=== PATIENT | female | born 1995 | race Caucasian/White ===

== ENCOUNTER 2017-02-05 23:58 | Emergency (ER) | payer SELFPAY ==
[2017-02-06 00:05] VITALS: BP 146/98; BMI 31.2
[2017-02-06] MEDS ORDERED: TORADOL 60 MG VIAL IM ONE (00:28)
[2017-02-06] MEDS ORDERED: DECADRON INJ IM ONE (00:28)
--- NOTE | 2017-02-06 00:28 | DR.TOOTHHP ---
HPI - Time Seen Time seen: 00:25 - Primary Care Physician Primary Care Physician: LV - HPI Comment HPI Comment: WORSE TONIGHT. NO FEVER. MED TAKING AT HOME DID NOT HELP. - Complaints Chief Complaint Doctors Comments: TOOTHACHE, 3RD LOWER MOLAR TIMES ONE DAY. Chief Complaint:: "toothache" Self Treatment fo Chief Complaint: Advil - Reviewed Nurses Notes Reviewed: Yes - Source History Provided: Patient - Mode of Arrival Mode of Arrival: Ambulatory - Timing Onset of Chief Complaint: 02/06/17 - Severity Pain Severity: Moderate - Location Location:: Left, Lower, Tooth, Gums - Context Onset:: Spontaneous History Of: None - Modifying Factors Worsens:: Nothing Improves:: Analagesics havn't helped - Associated Signs and Symptoms Associated signs and symptoms: None PMH - PMH Past Medical History: Yes Past Medical History: Hypertension Past Surgical History: No - Family History History of Family Medical Conditions: Yes Family Medical History: Diabetes Mellitus - Social History Do you use any recreational Drugs:: No - infectious screening Have you traveled outside the country in the last 6 months?: No ROS - Review of Systems Constitutional: No Symptoms Reported Eyes: No Symptoms Reported ENTM: Mouth Pain (3RD LEFT LOWER MOLAR TENDER, GUM INFLAME). negative: Ear Pain , Throat Pain Respiratoy: No Symptoms Reported. negative: Productive Cough, Short of Breath, Wheezing, Hemoptysis Cardiovascular: No Symptoms Reported Gastrointestinal/Abdominal: No Symptoms Reported Genitourinary: No Symptoms Reported Neurological: Headache Musculoskeletal: No Symptoms Reported Integumentary: No Symptoms Reported Hematologic/Lymphatic: No Symptoms Reported Endocrine: No Symptoms Reported All Other Systems: Reviewed and Negative PE - Vital Signs Vitals: Temperature 98.4 F Pulse Rate 95 Respiratory Rate 18 Blood Pressure 146/98 O2 Sat by Pulse Oximetry 98 - General Limitations: No Limitations General Appearance: Alert - Head Head Exam: Normal Inspection - Eyes Eye exam: Normal Appearance. negative: PERRL - ENT ENT Exam: Normal External Ear Exam External Ear Exam: Normal External Inspection TM/Canal Exam: Bilateral Normal Nose Exam: Normal Nose Exam Mouth Exam: Normal Inspection, Lip Swelling, Other (TENDERNESS LEFT LOWER 3RD MOLAR, GUN SWOLLEN AND TENDER AND RED.). negative: Trismus, Tongue Elevation, Tongue Swelling Teeth Exam: Normal Inspection - Neck Neck Exam: Trachea Midline - Chest Chest Inspection: Symmetric Chest Wall Rise - Respiratory Respiratory Exam: Normal Lung Sounds Bilat Respiratory Exam: Bilateral Clear to Auscultation - Cardiovascular Cardiovascular Exam: Regular Rate, Normal Rhythm, Normal Heart Sounds - Abdominal Exam Abdominal Exam: Normal Bowel Sounds, Soft. negative: Tenderness - Extremities Extremities Exam: Normal Inspection - Back Back Exam: Normal Inspection - Neurologic Neurological Exam: Alert, Oriented X3 - Skin Skin Exam: Normal Color MDM - Additional information Additional Information Obtained From: Old Records - Differential diagnosis Differential Diagnosis: Other (GINGIVITIS, DENTAL PAIN.) Course - Treatment Treatment: SEE ORDERS. - Reevaluation 1st: Improved - Education/Counseling Education/Counseling: Patient, Family, Education Educated On: Treatment, Diagnosis, Needs for Follow Up - Diagnosis Discharge Problem: Toothache, Gingivitis - Discharge Plan Condition: Stable Prescriptions: Amoxicillin [Amoxil 875 mg] 875 mg PO BID #20 tab Ketorolac Tromethamine [Toradol Tab] 10 mg PO Q8H PRN #15 tab PRN Reason: Pain - Follow ups/Referrals Follow ups/Referrals: NFD,None [Primary Care Provider] - 3 days - Instructions Instructions: Dental Pain, [id number], Gingivitis, [id number] Additional Instructions: RETURN TO ED IF WORSE. SEE DENTIST THIS WEEK
[2017-02-06] MEDS ORDERED: AMOXIL CAP 500 MG PO ONE ×2 (00:31→00:37)
[2017-02-06] MEDS ORDERED: DECADRON INJ ONE (00:37)
[2017-02-06] MEDS ORDERED: TORADOL 30 MG VIAL ONE (00:38)
== END 2017-02-06 00:54 | disposition home or self-care (01) ==
LOC: ER 23:58
DX: K05.10 Chronic gingivitis, plaque induced (principal); K08.89 Other specified disorders of teeth and supporting structures
CPT/HCPCS: 96372; 99282; J1100; J1885

== ENCOUNTER 2017-02-08 13:03 | Emergency (ER) | payer SELFPAY ==
[2017-02-08 13:10] VITALS: BP 148/79; BMI 31.6
--- NOTE | 2017-02-08 13:43 | ED.ABDFE ---
HPI - Time seen Time seen: 15:40 - PCP Primary Care Physician: LV - HPI Comment HPI Comment: PATIENT WITH GALL BLADDER DISEASE HERE WITH INCREASING PAIN AND NAUSEA. SO ACTIVE VOMITING CURRENTLY. DENIES FEVER OR DYSURIA. MEDS AT HOME HELPING. - Complaint Chief Complaint Doctors Comments: ABDOMINAL PAIN WITH NAUSEA. Chief Complaint:: ABDOMINAL PAIN WITH NAUSEA. - Nurses notes reviewed Nurses Notes Review: Yes - Source History Provided: Patient - Mode of arrival Mode of Arrival: Ambulatory - Timing Onset of Chief Complaint: 01/25/17 Came on: Gradually - Duration Duration: Constant Duration: Days - Location Location: RUQ, Epigastric - Severity Severity: Moderate - Quality Quality: Sharp - Context Onset: Gradually History of: None - Modifying Worsening Factors: Nothing Improving Factors: Nothing - Associated signs and symptoms Associated Signs and Symptoms: Nausea PMH - PMH Past Medical History: Yes Past Medical History: Hypertension Past Surgical History: No - Family History History of Family Medical Conditions: Yes Family Medical History: Diabetes Mellitus - Social History Does any household member use tobacco: No Alcohol Use: Occasionally Do you use any recreational Drugs:: No Lives With: Alone Lives Where: Home - infectious screening In the last 2 months have you had wt loss of >10#?: YES Have you had fever, night sweats or hemotysis?: No Have you traveled outside the country in the last 6 months?: No Isolation: Standard ROS - Review of Systems Constitutional: Weakness, Fatigue, Loss of Appetite. negative: Chills, Fever Eyes: No Symptoms Reported. negative: Eye Pain, Discharge ENTM: No Symptoms Reported. negative: Ear Pain, Nose Discharge, Nose Congestion , Throat Pain Respiratoy: No Symptoms Reported. negative: Productive Cough, Short of Breath, Wheezing, Hemoptysis Cardiovascular: No Symptoms Reported. negative: Chest Pain Gastrointestinal/Abdominal: Abdominal Pain, Nausea Genitourinary: No Symptoms Reported. negative: Dysuria, Frequency, Hematuria Neurological: Weakness Musculoskeletal: No Symptoms Reported Integumentary: No Symptoms Reported Hematologic/Lymphatic: No Symptoms Reported Endocrine: No Symptoms Reported All Other Systems: Reviewed and Negative PE - Vital Signs Vitals: Temperature 98.7 F Pulse Rate 101 Respiratory Rate 20 Blood Pressure 148/79 O2 Sat by Pulse Oximetry 98 - General Limitations: No Limitations General Appearance: Alert - Head Head Exam: Normal Inspection - Eyes Eye exam: Normal Appearance - ENT ENT Exam: Normal External Ear Exam - Neck Neck Exam: Normal Inspection - Chest Chest Inspection: Symmetric Chest Wall Rise - Respiratory Respiratory Exam: Normal Lung Sounds Bilat Respiratory Exam: Bilateral Clear to Auscultation - Cardiovascular Cardiovascular Exam: Regular Rate, Normal Rhythm, Normal Heart Sounds - Abdominal Exam Abdominal Exam: Normal Bowel Sounds, Soft, Tenderness Abdominal Tenderness: RUQ, Epigastrium, Mild - Rectal Rectal Exam: Deferred - Back Back Exam: Normal Inspection - Extremeties Extremities Exam: Normal Inspection - External Exam: Female: Deferred : Speculum Exam (Female): Deferred : Bimanual Exam (female): Deferred - Neurologic Neurological Exam: Alert, Oriented X3 - Psychiatric Psychiatric Exam: Anxious - Skin Skin Exam: Normal Color MDM - Differential Diagnosis Differential Diagnosis- Considerations may include:: Cholelethiasis, Gastritus/ PUD, Urinary tract infection, Urolithiasis Course - Treatment Treatment: SEE ORDERS - Education/Counseling Education/Counseling: Patient, Education Educated On: Diagnosis, Needs for Follow Up ROR - Labs Reviewed Laboratory Results Reviewed?: Yes Result Diagrams: 02/08/17 13:58 02/08/17 13:58 Laboratory: WBC 10.7 X10^3/uL (3.6-10.0) H 02/08/17 13:58 RBC 5.18 X10^6/uL (3.5-5.4) 02/08/17 13:58 Hgb 13.0 g/dL (12.0-16.0) 02/08/17 13:58 Hct 39.5 % (36.0-47.0) 02/08/17 13:58 MCV 76.3 fL (80.0-100.0) L 02/08/17 13:58 MCH 25.1 pg (27.0-34.0) L 02/08/17 13:58 MCHC 33.0 g/dL (33.0-35.0) 02/08/17 13:58 RDW 14.7 % (11.6-16.5) 02/08/17 13:58 Plt Count 322 X10^3/uL (150.0-450.0) 02/08/17 13:58 Plt Count Comment Adequate (ADEQUATE) 02/08/17 13:58 MPV 8.5 fL (7.4-11.0) 02/08/17 13:58 Neut % 69.5 % (42.0-75.0) 02/08/17 13:58 Lymph % 23.8 % (21.0-51.0) 02/08/17 13:58 [place] % 3.9 % (0.0-13.0) 02/08/17 13:58 Eos % 2.3 % (0.9-2.9) 02/08/17 13:58 Baso % 0.5 % (0.2-1.0) 02/08/17 13:58 Neut # 7.4 x10^3/uL (2.2-4.8) H 02/08/17 13:58 Lymph # 2.5 X10^3/uL (1.3-2.9) 02/08/17 13:58 [place] # 0.4 x10^3/uL (0.3-0.8) 02/08/17 13:58 Eos # 0.2 x10^3/uL (0.0-0.2) 02/08/17 13:58 Baso # 0.1 X10^3/uL (0.0-0.1) 02/08/17 13:58 Absolute Nucleated RBC 0.0 /100WBC 02/08/17 13:58 Plt Morphology Comment Normal (NORMAL) 02/08/17 13:58 RBC Morphology Abnormal (NORMAL) A 02/08/17 13:58 Hypochromasia Slight A 02/08/17 13:58 Sodium 141 mmol/L (136-145) 02/08/17 13:58 Corrected Sodium TNP 02/08/17 13:58 Potassium 4.1 mmol/L (3.5-5.1) 02/08/17 13:58 Chloride 107 mmol/L (98-107) 02/08/17 13:58 Carbon Dioxide 22.8 mmol/L (21-32) 02/08/17 13:58 BUN 11 mg/dL (7-18) 02/08/17 13:58 Creatinine 0.79 mg/dL (0.55-1.02) 02/08/17 13:58 Est GFR (MDRD) Af Amer > 60 (>60) 02/08/17 13:58 Est GFR (MDRD) Non-Af > 60 (>60) 02/08/17 13:58 Glucose 85 mg/dL (65-99) 02/08/17 13:58 Calcium 9.1 mg/dL (8.5-10.1) 02/08/17 13:58 Corrected Calcium TNP 02/08/17 13:58 Total Bilirubin 0.30 mg/dL (0.2-1.0) 02/08/17 13:58 AST 14 Units/L (15-37) L 02/08/17 13:58 ALT 29 Units/L (12-78) 02/08/17 13:58 Alkaline Phosphatase 83 Units/L (46-116) 02/08/17 13:58 Total Protein 8.2 g/dL (6.4-8.2) 02/08/17 13:58 Albumin 4.0 g/dL (3.4-5.0) 02/08/17 13:58 Globulin 4.2 g/dL (2.5-4.5) 02/08/17 13:58 Albumin/Globulin Ratio 1.0 Ratio (1.1-2.1) L 02/08/17 13:58 Amylase 39 Units/L (25-115) 02/08/17 13:58 Lipase 84 Units/L (73-393) 02/08/17 13:58 Specimen Type Clean catch urine 02/08/17 14:14 Urine Color Pale yellow (YELLOW) 02/08/17 14:14 Urine Appearance Clear (CLEAR) 02/08/17 14:14 Urine pH 5.0 (5.0 - 8.0) 02/08/17 14:14 Ur Specific [place] 1.020 (1.000-1.030) 02/08/17 14:14 Urine Protein Negative (NEGATIVE) 02/08/17 14:14 Urine Glucose (UA) Negative (NEGATIVE) 02/08/17 14:14 Urine Ketones Negative (NEGATIVE) 02/08/17 14:14 Urine Occult Blood Negative (NEGATIVE) 02/08/17 14:14 Urine Nitrite Negative (NEGATIVE) 02/08/17 14:14 Urine Bilirubin Negative (NEGATIVE) 02/08/17 14:14 Urine Urobilinogen Normal (NORMAL) 02/08/17 14:14 Ur Leukocyte Esterase Negative (NEGATIVE) 02/08/17 14:14 Urine RBC None seen /HPF (NEGATIVE) 02/08/17 14:14 Urine WBC None seen /HPF (NEGATIVE) 02/08/17 14:14 Ur Squamous Epith Cells Rare /HPF (NEGATIVE) 02/08/17 14:14 Urine Bacteria Negative /HPF (NEGATIVE) 02/08/17 14:14 Ur Culture Indicated? No/not indicated 02/08/17 14:14 - Diagnosis Discharge Problem: Abdominal pain, Gallbladder disease - Discharge Plan Disposition: HOME, SELF-CARE Condition: Stable - Follow ups/Referrals Follow ups/Referrals: NFD,None [Primary Care Provider] - 02/09/17 - Instructions Instructions: Abdominal Pain, Adult, [id number] Additional Instructions: RETURN TO ED IF WORSE. SEE SURGEON IN AM. CONTINUE WITH MED YOU HAVE AT HOME.
[2017-02-08 14:15] LABS: BASOPHILS # (AUTO) 0.1 X10^3/uL (0.0-0.1); BASOPHILS % (AUTO) 0.5 % (0.2-1.0); EOSINOPHILS # (AUTO) 0.2 x10^3/uL (0.0-0.2); EOSINOPHILS % (AUTO) 2.3 % (0.9-2.9); HEMATOCRIT 39.5 % (36.0-47.0); LYMPHOCYTES # (AUTO) 2.5 X10^3/uL (1.3-2.9); LYMPHOCYTES % (AUTO) 23.8 % (21.0-51.0); MEAN CORPUSCULAR HEMOGLOBIN 25.1 pg (27.0-34.0); MEAN CORPUSCULAR VOLUME 76.3 fL (80.0-100.0); MEAN PLATELET VOLUME 8.5 fL (7.4-11.0); MONOCYTES # (AUTO) 0.4 x10^3/uL (0.3-0.8); MONOCYTES % (AUTO) 3.9 % (0.0-13.0); NEUTROPHILS # (AUTO) 7.4 x10^3/uL (2.2-4.8); NEUTROPHILS % (AUTO) 69.5 % (42.0-75.0); PLATELET COUNT 322 X10^3/uL (150.0-450.0); RED BLOOD COUNT 5.18 X10^6/uL (3.5-5.4); RED CELL DISTRIBUTION WIDTH 14.7 % (11.6-16.5); WHITE BLOOD COUNT 10.7 X10^3/uL (3.6-10.0)
[2017-02-08 14:19] LABS: ALANINE AMINOTRANSFERASE 29 Units/L (12-78); ALKALINE PHOSPHATASE 83 Units/L (46-116); AMYLASE 39 Units/L (25-115); ASPARTATE AMINO TRANSFERASE 14 Units/L (15-37); BLOOD UREA NITROGEN 11 mg/dL (7-18); CALCIUM 9.1 mg/dL (8.5-10.1); CARBON DIOXIDE 22.8 mmol/L (21-32); CHLORIDE 107 mmol/L (98-107); CREATININE 0.79 mg/dL (0.55-1.02); GLUCOSE 85 mg/dL (65-99); LIPASE 84 Units/L (73-393); SODIUM 141 mmol/L (136-145); TOTAL PROTEIN 8.2 g/dL (6.4-8.2); eGFR BLACK RACES > 60 (>60); eGFR NON BLACK RACES > 60 (>60)
[2017-02-08 14:20] LABS: BILIRUBIN,URINE NEGATIVE (NEGATIVE); BLOOD/HEMOGLOBIN,URINE NEGATIVE (NEGATIVE); GLUCOSE, URINE NEGATIVE (NEGATIVE); KETONES,URINE NEGATIVE (NEGATIVE); LEUKOCYTE ESTERASE ,URINE NEGATIVE (NEGATIVE); NITRITES,URINE NEGATIVE (NEGATIVE); PROTEIN,URINE NEGATIVE (NEGATIVE); UROBILINOGEN,URINE NORMAL (NORMAL)
[2017-02-08 14:26] LABS: HYPOCHROMASIA SLIGHT; PLATELET MORPHOLOGY COMMENT NORMAL (NORMAL)
[2017-02-08 14:31] LABS: APPEARANCE,URINE CLEAR (CLEAR); BACTERIA,URINE NEGATIVE /HPF (NEGATIVE); COLOR,URINE PALE YELLOW (YELLOW); RBC,URINE NONE SEEN /HPF (NEGATIVE); SQUAMOUS EPITHELIAL CELL,UR RARE /HPF (NEGATIVE)
== END 2017-02-08 15:25 | disposition home or self-care (01) ==
LOC: ER 13:35
DX: K82.9 Disease of gallbladder, unspecified (principal); R10.11 Right upper quadrant pain
CPT/HCPCS: 36415; 80053; 81001; 82150; 83690; 85025; 99282

== ENCOUNTER → 2017-02-24 | Outpatient (CLI) | payer OTHER ==
[2017-02-08 13:10] VITALS: BP 148/79
--- NOTE | 2017-02-27 08:21 | RAD ---
HISTORY: Left upper quadrant pain Study: Acute abdominal series Comparison: None Findings: The trachea is midline. The cardiac silhouette is unremarkable. The lungs are clear without focal infiltrate or effusion. The bony thorax is unremarkable. Flat plate and upright evaluation of the abdomen demonstrates a normal bowel gas pattern. No pneumop eritoneum is identified .. No pathological soft tissue mass or calcification can be observed. The bony structures are grossly intact. IMPRESSION: 1. No acute cardiopulmonary disease. 2. No evidence for acute abdominal pathology identified. Reported By:
== END ==
LOC: RAD 16:21
PROVIDERS: ATTEND Obstetrics & Gynecology Obstetrics
DX: R10.12 Left upper quadrant pain (principal)
CPT/HCPCS: 74022

== ENCOUNTER 2017-09-22 12:19 | Emergency (ER) | payer OTHER ==
[2017-09-22 13:21] VITALS: BP 134/74; BMI 30.9
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
[2017-09-22] MEDS ORDERED: TORADOL 60 MG VIAL IM ONE (14:44)
[2017-09-22] MEDS ORDERED: TORADOL 60 MG VIAL ONE (15:11)
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
== END 2017-09-22 15:53 | disposition home or self-care (01) ==
LOC: ER 13:53
DX: S13.9XXA Sprain of joints and ligaments of unspecified parts of neck, initial encounter (principal); R51 Headache; V49.9XXA Car occupant (driver) (passenger) injured in unspecified traffic accident, initial encounter
CPT/HCPCS: 70450; 72125; 96372; 99282; J1885